=== PATIENT | female | born 1960 | race Caucasian/White ===

== ENCOUNTER → 2020-07-08 15:41 | Outpatient (CLI) | payer BC, SELFPAY ==
--- NOTE | ~2020-07-08 | XR_ITS ---
EXAMINATION: XR lumbar spine 2-3V EXAM DATE: 07/08/2020 16:11 INDICATION: spondylolisthesis of lumbar region, s/p fusion . TECHNIQUE: Lumber spine frontal, lateral, lateral L5-S1 projections for interpretation. Correlation i s made to MR lumbar spine 10/23/2018 FINDINGS: Dorsey rods from thoracic spine through sacroiliac joints. Moderate lumbar levoscolios is. Hardware is intact. Prevertebral bodies appear aligned in the AP dimension. Probably about a cent imeter of left lateral subluxation L3 vertebral body. Sacrum, sacroiliac joints, sacral arcuate lines are intact. Interbody fusion L2-3, L3-4 and L4-5. Mild to moderate diffuse loss of lumbar vertebral body heights. Paraspinal soft tissue is unremarkable. IMPRESSION: 1. Intact Dorsey rods. 2. Moderate levoscoliosis. 3. Chronic mild to moderate lumbar compression fractures. Reviewed, dictated and finalized at location A. MANAGER
== END ==
DX: M43.16 Spondylolisthesis, lumbar region (principal); S32.000A Wedge compression fracture of unspecified lumbar vertebra, initial encounter for closed fracture; X58.XXXA Exposure to other specified factors, initial encounter
CPT/HCPCS: 72100

== ENCOUNTER 2021-06-02 11:02 | Emergency (ER) | payer BC, SELFPAY ==
--- NOTE | ~2021-06-02 | XR_ITS ---
EXAMINATION: XR knee LT min 4V EXAM DATE: 06/02/2021 11:45 INDICATION: Chronic Lt knee PAIN; worsening pain. TECHNIQUE: Left knee lateral, frontal AP, frontal PA tunnel, sunrise projections. Comparison is made to prior examination from 06/14/2020. FINDINGS: No evidence osteochondral defect or joint body in the left knee joint. There is severe pa tellofemoral compartment, mild to moderate tibiofemoral compartment primary osteoarthritis. There are no acute fractures or dislocations identified. There is no subcutaneous gas. Trace joint fluid. T here are no radiopaque foreign bodies. Accounting for differences in technique, there is no signific ant interval change. IMPRESSION: Moderate to severe left patellofemoral compartment osteoarthritis. Reviewed, dictated and finalized at location A. T END DEVELOPER
[2021-06-02 11:08] VITALS: BP 155/90; PULSE 84; RESP 20; TEMP 36.8; O2SAT 100
--- NOTE | 2021-06-02 11:22 | ED.URI ---
HPI - URI/Sore Throat General Chief Complaint: Extremity Problem,Nontraumatic Stated Complaint: Lt knee pain Time Seen by Provider: 06/02/21 11:28 Source: patient and RN notes reviewed Mode of arrival: ambulatory Limitations: no limitations History of Present Illness HPI Narrative: 60-year-old female presents concern for left knee pain worsening for 3 days. She reports she has had problems with the knee before but over the last several days it is hurts worse than it has in the past. She reports pain medial to the patella, swelling lateral to the patella. She denies any new injury or trauma. Reports she recently had a reverse shoulder replacement and is not able to take NSAIDs. Reports she has not taken anything for the pain. She denies decrease sensation, strength, range of motion. MD elicited complaint: cough and sore throat Related Data Home Medications Medication Instructions Recorded Confirmed estradiol 0.025 patch TRANSDERMAL 2XW 06/02/21 06/02/21 hydrocortisone 5 mg PO QID 06/02/21 06/02/21 potassium chloride 10 meq PO DAILY 06/02/21 06/02/21 progesterone micronized 100 mg PO DAILY 06/02/21 06/02/21 thyroid (pork) [[place] Thyroid] 120 mg PO DAILY 06/02/21 06/02/21 Allergies Allergy/AdvReac Type Severity Reaction Status Date / Time duloxetine Allergy Unknown Hives Verified 06/02/21 11:36 Penicillins Allergy Unknown Unknown Verified 06/02/21 11:36 Sulfa (Sulfonamide Allergy Unknown Unknown Verified 06/02/21 11:36 Antibiotics) Review of Systems Review of Systems: CONSTITUTIONAL: Denies malaise, chills, sweats, or fever. CARDIOVASCULAR: Denies chest pain, palpitations, or edema. SKIN: Denies rash or itching, redness, bruising, open skin. MUSCULOSKELETAL: Reports left knee pain and swelling NEUROLOGIC: Denies numbness, weakness All systems reviewed & are unremarkable except as noted in HPI and below PMFSH Past Medical History Medical History (Updated 06/02/21 @ 12:04 by Natacha Irleand NP) Patella, chondromalacia Patellar instability of left knee Undifferentiated inflammatory arthritis Surgical History Surgical History History of lumbar laminectomy for spinal cord decompression Family History Family History Father Family history of cardiovascular disease Other Family history of arthritis Social History Social History Smoking status: Former smoker Smoking end date: 07/02/83 Alcohol intake: current Comments At time of signature, agree with nursing past medical, surgical, social and family history. There is no relevant family history pertinent to the presenting complaint Exam Narrative: GENERAL: Well-appearing, well-nourished, and in no acute distress. HEAD: Normocephalic EYES: PERRLA, conjunctivae clear ENT: Nares clear, turbinates edematous and erythematous, clear discharge. Mucous membranes moist. TM pearly cooper with dull light reflex bilaterally; no tragal tenderness. Oropharynx not erythematous without lesions. Tonsils not enlarged and without exudate, no drooling, no hoarseness, no trismus, uvula midline. NECK: Supple. No lymphadenopathy CHEST: Clear to auscultation, breath sounds equal. No wheezing, rhonchi, rales, or stridor. No respiratory distress, speaks in full sentences. HEART: Regular rate and rhythm. No murmur heard. SKIN: Warm, dry, no rash. NEURO: Alert and oriented x3. PSYCH: Normal mood and affect Course Course Emergency Course: Patient is aware of diagnosis, understands and agrees to treatment plan. Anticipatory guidance given. Patient agrees to follow-up as directed and is aware of reasons to seek care at the emergency department. Portions of this record may have been created with voice recognition software Vital Signs Vital signs: Vital Signs Temperature 98.2 F 06/02/21 11:08 Pulse Rate
== END 2021-06-02 12:22 | disposition home or self-care (01) ==
PROVIDERS: Emergency Provider Nurse Practitioner
DX: M17.12 Unilateral primary osteoarthritis, left knee (principal); Z87.891 Personal history of nicotine dependence
CPT/HCPCS: 73564; 99213; G0463

== ENCOUNTER 2021-11-26 12:36 | Emergency (ER) | payer SELFPAY ==
--- NOTE | ~2021-11-26 | XR_ITS ---
XR hand LT min 3V DATE: 11/26/2021 13:10 INDICATION: Third and fourth metacarpophalangeal swelling and pain while mowing gas TECHNIQUE: 3 views COMPARISON: None FINDINGS: There is osteopenia. There is osteoarthritis at the triscaphe joint and particularly prominent osteoarthritis at the first carpometacarpal joint.. Osteoarthritic changes are noted involving some interphalangeal joints, most prominently at the distal interphalangeal joint of the second digit. There is anterior subluxation at the second and third metacarpophalangeal joints. No fracture or dislocation, periosteal reaction or bone destruction is noted. IMPRESSION: Osteopenia Polyarticular osteoarthritis, most severe at first carpometacarpal joint Anterior subluxation at second and third metacarpophalangeal joints Reviewed, dictated and finalized at location A.
[2021-11-26 12:37] VITALS: BP 185/108; PULSE 64; RESP 18; TEMP 36.1; O2SAT 100
--- NOTE | 2021-11-26 12:54 | ED.GENADULT ---
HPI - General Adult General Chief complaint: Extremity Injury, Upper Stated complaint: left hand pain Time Seen by Provider: 11/26/21 12:43 History of Present Illness HPI narrative: 61-year-old female presenting to the emergency department for evaluation of left hand pain. Patient states she does have a history of osteopenia and arthritis. Patient states she was pushing her lawnmower when she had acute onset of left hand pain. Patient did not feel a pop but did feel increased hand pain. Patient states that the pain in the left hand has continued to worsen. Patient states she does have increased pain with extension of her fingers. Patient denies any pain with movement of the wrist but states the pain does radiate down to her wrist. Patient does have a prior history of a right shoulder fracture due to minor movement and activity. Patient was concerned that she has fractured her hand today. Related Data Home Medications Medication Instructions Recorded Confirmed estradiol 0.025 mg/24 hr weekly 0.025 patch transdermal 2XW 06/02/21 06/02/21 transdermal patch hydrocortisone 5 mg tablet 5 mg PO QID 06/02/21 06/02/21 potassium chloride 10 mEq 10 meq PO DAILY 06/02/21 06/02/21 capsule,extended release progesterone micronized 100 mg 100 mg PO DAILY 06/02/21 06/02/21 capsule thyroid (pork) 120 mg tablet 120 mg PO DAILY 06/02/21 06/02/21 ([place] Thyroid) Allergies Allergy/AdvReac Type Severity Reaction Status Date / Time duloxetine Allergy Unknown Hives Verified 06/02/21 11:36 Penicillins Allergy Unknown Unknown Verified 06/02/21 11:36 Sulfa (Sulfonamide Allergy Unknown Unknown Verified 06/02/21 11:36 Antibiotics) Review of Systems Review of Systems: CONSTITUTIONAL: Denies fever, chills, or sweats. EYES: Denies visual changes, redness, or discharge. ENT: Denies rhinorrhea, congestion, sore throat, or otalgia. CARDIOVASCULAR: Denies chest pain, palpitations, or edema. RESPIRATORY: Denies cough or dyspnea. GASTROINTESTINAL: Denies abdominal pain, nausea, vomiting, or diarrhea. GENITOURINARY: Denies dysuria or hematuria. SKIN: Denies rash or itching. MUSCULOSKELETAL: Left hand pain, see HPI NEUROLOGIC: Denies headache, numbness, or weakness. 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 HEAD: normocephalic, atraumatic. EYES: PERRLA/EOMI, conjunctivae clear. NECK: Supple. No adenopathy, no masses. RESPIRATORY: Airway patent, respirations nonlabored. Clear to auscultation bilaterally, no rales, rhonchi, wheezing. CARDIOVASCULAR: Regular rate and rhythm without murmurs rubs or gallops. ABDOMINAL: Soft, nontender, nondistended, normal bowel sounds MUSCULOSKELETAL: Tenderness over third and fourth metacarpal NEURO: Alert. Cranial nerves II through XII intact. Good gait. Good coordination SKIN: Warm, dry. Normal Color PSYCHIATRIC: Normal affect/mood. Course Course Emergency Course: Patient was updated on the results of her x-ray showing no fracture or dislocation. Patient was provided an Bean wrap for comfort. Patient is able to take Tylenol but due to her recent surgery she is unable to take any NSAIDs at this time. Patient was encouraged to have close follow-up with her primary care phys
== END 2021-11-26 13:41 | disposition home or self-care (01) ==
PROVIDERS: Emergency Provider Emergency Medicine
DX: S63.211A Subluxation of metacarpophalangeal joint of left index finger, initial encounter (principal); S63.213A Subluxation of metacarpophalangeal joint of left middle finger, initial encounter; M18.9 Osteoarthritis of first carpometacarpal joint, unspecified; M85.80 Other specified disorders of bone density and structure, unspecified site; Z87.891 Personal history of nicotine dependence; X50.0XXA Overexertion from strenuous movement or load, initial encounter
CPT/HCPCS: 73130; 99283

== ENCOUNTER 2022-01-09 15:49 | Outpatient (CLI) | payer BC, SELFPAY ==
--- NOTE | ~2022-01-09 | DEXA_ITS ---
Bone Density Report Name: LUISA POLLACK Age: 61 Sex: Female Ethnicity: White Date of : 1960 Indication: monitoring treatment; height loss; history of glucocorticoids; prior fracture; postmenopausal Referring Provider: ALDA RONDON Study: Bone densitometry was performed. Exam Date: January 09, 2022 Accession number: [id number] Bone Density: Region BMD T-score Z-score Classification Femoral Neck (Left) 0.804 -0.4 1.0 Normal Total Hip (Left) 0.879 -0.5 0.6 Normal Femoral Neck (Right) 0.848 0.0 1.4 Normal Total Hip (Right) 0.925 -0.1 1.0 Normal Total Hip Mean 0.902 -0.3 0.8 Normal World Health Organization criteria for BMD impression classify patients as: Normal (T-score at or above -1.0), Osteopenia (T-score between -1.0 and -2.5), or Osteoporosis (T-score at or below -2.5). 10-year Fracture Risk: FRAX not reported because: All T-scores for Spine Total, Hip Total, Femoral Neck at or above -1.0 Treated for osteoporosis Previous Exams: Region Exam Age BMD T-score BMD Change BMD Change Date g/cm2 vs Baseline vs Previous Total Hip(Left) 01/09/2022 61 0.879 -0.5 -0.044* -0.044* 02/09/2017 56 0.923 -0.2 Total Hip(Right) 01/09/2022 61 0.925 -0.1 -0.055* -0.055* 02/09/2017 56 0.979 0.3 *Denotes significance at 95% confidence level, LSC for Total Hip = 0.027 g/cm2 Clinical Information Provided by Patient: Has had a low trauma fracture Has taken Glucocorticoids Is being treated for osteoporosis Has used the following medications: HRT (i.e. estrogen/hormone therapy), Vitamin D, Calcium, ORAL HYDROCORTOZONE Patient maximum height was 65.5 Menopause Age: 41 Does not regularly consume dairy products Drinks caffeinated beverages Onset of menses at age 14 Number of children 2 Missed period for more than 6 months in a row Impression: The patient has normal bone mass. The patient has risk factors, including: previous fracture, history of glucocorticoid therapy. The BMD for the Total Hip(Left) decreased, changing by -0.044 since the last DXA exam. The BMD for the Total Hip(Right) decreased, changing by -0.055 since the last DXA exam. Discussion: SIGNIFICANT BONE LOSS OBSERVED. Adherence to therapy (including calcium and vitamin D intake) should be assessed. If compliance is not a factor, review management and exclusion of secondary causes of bone loss. It is important to ask patients whether they are taking their medications and to encourage continued and appropriate
--- NOTE | ~2022-01-09 | DEXA_ITS ---
Bone Density Report Name: LUISA POLLACK Age: 61 Sex: Female Ethnicity: White Date of : 1960 Indication: postmenopausal; screening for osteoporosis; height loss; history of glucocorticoids; prior fracture; Referring Provider: LADA RONDON Study: Bone densitometry was performed. Exam Date: January 09, 2022 Accession number: [id number] Bone Density: Region BMD T-score Z-score Classification Total Forearm (Left) 0.468 -1.9 -0.3 1/3 Forearm (Left) 0.538 -2.5 -1.0 UD Forearm (Left) 0.345 -1.3 -0.2 World Health Organization criteria for BMD impression classify patients as: Normal (T-score at or above -1.0), Osteopenia (T-score between -1.0 and -2.5), or Osteoporosis (T-score at or below -2.5). Clinical Information Provided by Patient: Has had a low trauma fracture Has taken Glucocorticoids Is being treated for osteoporosis Has used the following medications: HRT (i.e. estrogen/hormone therapy), Vitamin D, Calcium, ORAL HYDROCORTOZONE Patient maximum height was 65.5 Menopause Age: 41 Does not regularly consume dairy products Drinks caffeinated beverages Onset of menses at age 14 Number of children 2 Missed period for more than 6 months in a row Impression: The patient has established osteoporosis, based on the Left Third Radius T-score and the existence of a prior fracture. The patient has risk factors, including: previous fracture, history of glucocorticoid therapy. Discussion: It is important to ask patients whether they are taking their medications and to encourage continued and appropriate compliance with their osteoporosis therapies to reduce fracture risk. It is also important to review their risk factors and encourage appropriate calcium and vitamin D intakes, exercise, fall prevention and other lifestyle measures. Follow-Up: Consider a repeat BMD and Vertebral Fracture Assessment (VFA) exam in 2 years or sooner if medically necessary, to reassess this patient's status. Reported by: [facility] on 01/09/2022 4:42:00 PM. Reviewed, dictated and finalized at location Alejandrina MILES
== END 2022-01-09 15:50 ==
DX: M81.8 Other osteoporosis without current pathological fracture (principal)
CPT/HCPCS: 77080; 77081